=== PATIENT | male | born 1965 | race Caucasian/White ===

== ENCOUNTER → 2018-04-24 16:56 | Outpatient (CLI) | payer MEDICARE, MEDICAID, SELFPAY ==
[2018-04-24 16:59] LABS: Microscopic, Urine URINE MICROSCOPIC (MICROSCOPIC)
[2018-04-24 17:10] LABS: Appearance,Urine CLEAR (Clear); Bilirubin,Urine Negative (Negative); Blood, Urine Negative (Negative); Color,Urine YELLOW (Yellow); Glucose,Urine (UA) Negative (Negative); Ketones,Urine Negative (Negative); Leukocyte Esterase,Urine Negative (Negative); Nitrate,Urine Negative (Negative); PH,Urine 5.5 (5.0-8.5); Protein,Urine Negative (Negative); Urobilinogen,Urine 0.2 EU/dl (0.2)
[2018-04-24 17:18] LABS: Squamous Epithelial Cell,Urine Occasional #/hpf (0-5); WBC,Urine Occasional #/hpf (0-3)
== END ==
PROVIDERS: PCP Internal Medicine; Visit Provider Internal Medicine
DX: C34.90 Malignant neoplasm of unspecified part of unspecified bronchus or lung (principal)
CPT/HCPCS: 81001

== ENCOUNTER 2018-05-09 13:04 | Outpatient (CLI) | payer MEDICARE, MEDICAID, SELFPAY ==
[2018-05-09 15:41] VITALS: BP 129/78; PULSE 86; RESP 16; TEMP 36.6; O2SAT 96
== END 2018-05-09 15:15 | disposition home or self-care (01) ==
LOC: INF 13:06
PROVIDERS: Family Provider Internal Medicine; PCP Internal Medicine; Visit Provider Internal Medicine Infectious Disease
DX: L03.313 Cellulitis of chest wall (principal); B95.62 Methicillin resistant Staphylococcus aureus infection as the cause of diseases classified elsewhere; J96.11 Chronic respiratory failure with hypoxia; I87.2 Venous insufficiency (chronic) (peripheral); E11.9 Type 2 diabetes mellitus without complications; E66.01 Morbid (severe) obesity due to excess calories; C34.90 Malignant neoplasm of unspecified part of unspecified bronchus or lung; C79.51 Secondary malignant neoplasm of bone; F17.210 Nicotine dependence, cigarettes, uncomplicated
CPT/HCPCS: 96365; J0878

== ENCOUNTER 2018-05-10 13:06 | Outpatient (CLI) | payer MEDICARE, MEDICAID, SELFPAY ==
[2018-05-10 13:32] VITALS: BP 129/76; PULSE 90; RESP 16; TEMP 36.9; O2SAT 99
== END 2018-05-10 14:10 | disposition home or self-care (01) ==
LOC: INF 13:07
PROVIDERS: Family Provider Internal Medicine; PCP Internal Medicine; Visit Provider Internal Medicine Infectious Disease
DX: L03.313 Cellulitis of chest wall (principal); B95.62 Methicillin resistant Staphylococcus aureus infection as the cause of diseases classified elsewhere; J96.11 Chronic respiratory failure with hypoxia; I87.2 Venous insufficiency (chronic) (peripheral); E11.9 Type 2 diabetes mellitus without complications; E66.01 Morbid (severe) obesity due to excess calories; C34.90 Malignant neoplasm of unspecified part of unspecified bronchus or lung; C79.51 Secondary malignant neoplasm of bone; F17.210 Nicotine dependence, cigarettes, uncomplicated
CPT/HCPCS: 96365; J0878

== ENCOUNTER 2018-05-11 13:10 | Outpatient (CLI) | payer MEDICARE, MEDICAID, SELFPAY ==
[2018-05-11 13:20] VITALS: BMI 39.2
[2018-05-11 14:00] VITALS: BP 129/75; PULSE 84; RESP 18; TEMP 36.6; O2SAT 95
[2018-05-11 14:30] VITALS: BP 118/72; PULSE 88; RESP 18; O2SAT 96
[2018-05-11 14:32] LABS: Basophils % 0.4 % (0.1-2.0); Eosinophils % 0.6 % (0.1-12.0); Hematocrit 36.1 % (42.0-52.0); Hemoglobin 10.8 g/dL (14.1-18.0); Lymphocytes # 0.4 K/mm3 (0.7-4.5); Lymphocytes % 6.7 K/mm3 (10-50); Mean Corpuscular HGB Conc 29.9 g/dL (31.8-35.4); Mean Corpuscular Hemoglobin 28.7 pg (27.0-31.2); Mean Platelet Volume 9.2 fl (7.4-10.4); Monocytes # 0.3 K/mm3 (0.1-1.0); Monocytes % 4.7 % (1.7-9.3); Neutrophils # 5.8 K/mm3 (1.8-7.8); Neutrophils % 87.6 % (37.0-80.0); Platelet Count 260 K/mm3 (142-424); Red Blood Count 3.76 M/mm3 (4.60-6.20); Red Cell Distribution Width 16.4 % (11.5-17.5); White Blood Count 6.6 K/mm3 (4.8-10.8)
[2018-05-11 14:36] LABS: MANUAL DIFFERENTIAL MANUAL DIFFERENTIAL (MANUAL DIFF)
[2018-05-11 14:40] VITALS: BP 124/78; PULSE 82; RESP 18; O2SAT 95
[2018-05-11 14:42] LABS: Alanine Aminotransferase 22 U/L (12-78); Albumin Level 3.1 gm/dL (3.4-5.0); Albumin/Globulin Ratio 0.8 (1.1-1.8); Alkaline Phosphatase 128 U/L (46-116); Anion Gap 7.9 mEq/L (5-15); Aspartate Amino Transferase 8 U/L (15-37); Bilirubin,Total 0.4 mg/dL (0.2-1.0); Blood Urea Nitrogen 14 mg/dL (7-18); Calcium 8.2 mg/dL (8.5-10.1); Carbon Dioxide 30 mmol/L (21.0-32.0); Chloride 105 mmol/L (98-107); Creatine Kinase 25 U/L (39-308); Creatinine Clearance Estimated 215 mL/min (0-300); Creatinine,Serum 0.68 mg/dL (0.70-1.30); Estimated Glomerular Filt Rate 123 ml/min (>60); GFR (African American) 149 ML/MIN (>60); Globulin 3.8 gm/dl (1.3-3.2); Glucose 169 mg/dL (74-106); Potassium 3.9 mmoL/L (3.5-5.1); Sodium 139 mmol/L (136-145); Total Protein,Serum 6.9 gm/dL (6.4-8.2)
[2018-05-11 15:00] LABS: Eosinophils % 1 % (0-3); Lymphocytes % 4 % (10-50); Monocytes % 9 % (2-9); Neutrophils % 86 % (42-76); Total Cells Counted 100
[2018-05-11 15:01] LABS: Platelet Estimate Normal; RBC Morphology Normal
[2018-05-11 15:18] LABS: Erythrocyte Sedimentation Rate 70 mm/hr (0-15)
== END 2018-05-11 14:45 | disposition home or self-care (01) ==
LOC: INF 13:17
PROVIDERS: Family Provider Internal Medicine; PCP Internal Medicine; Visit Provider Internal Medicine Infectious Disease
DX: L02.213 Cutaneous abscess of chest wall (principal); L03.313 Cellulitis of chest wall; B95.62 Methicillin resistant Staphylococcus aureus infection as the cause of diseases classified elsewhere
CPT/HCPCS: 36415; 80053; 82550; 85007; 85025; 85651; 86140; 96365; J0878

== ENCOUNTER 2018-05-12 13:00 | Outpatient (CLI) | payer MEDICARE, MEDICAID, SELFPAY ==
[2018-05-12 13:45] VITALS: BP 151/86; PULSE 98; RESP 18; TEMP 36.7; O2SAT 95
[2018-05-12 14:20] VITALS: BP 132/70; PULSE 93; RESP 18
== END 2018-05-12 14:20 | disposition home or self-care (01) ==
LOC: INF 13:14
PROVIDERS: PCP Internal Medicine; Visit Provider Internal Medicine Infectious Disease
DX: L02.213 Cutaneous abscess of chest wall (principal); L03.313 Cellulitis of chest wall; B95.62 Methicillin resistant Staphylococcus aureus infection as the cause of diseases classified elsewhere; I87.2 Venous insufficiency (chronic) (peripheral); J96.11 Chronic respiratory failure with hypoxia; E11.9 Type 2 diabetes mellitus without complications; E66.01 Morbid (severe) obesity due to excess calories; J44.9 Chronic obstructive pulmonary disease, unspecified; C34.90 Malignant neoplasm of unspecified part of unspecified bronchus or lung; C79.51 Secondary malignant neoplasm of bone; F17.210 Nicotine dependence, cigarettes, uncomplicated
CPT/HCPCS: 96365; J0878

== ENCOUNTER 2018-05-13 13:07 | Outpatient (CLI) | payer MEDICARE, MEDICAID, SELFPAY ==
[2018-05-13 13:40] VITALS: BP 136/81; PULSE 93; RESP 18; O2SAT 93
[2018-05-13 14:10] VITALS: BP 125/56; PULSE 88; RESP 18
== END 2018-05-13 14:35 | disposition home or self-care (01) ==
LOC: INF 13:08
PROVIDERS: PCP Internal Medicine; Visit Provider Internal Medicine Infectious Disease
DX: L02.231 Carbuncle of abdominal wall (principal); L03.313 Cellulitis of chest wall; B95.62 Methicillin resistant Staphylococcus aureus infection as the cause of diseases classified elsewhere; I87.2 Venous insufficiency (chronic) (peripheral); J96.11 Chronic respiratory failure with hypoxia; F17.210 Nicotine dependence, cigarettes, uncomplicated
CPT/HCPCS: 96365; J0878

== ENCOUNTER 2018-05-14 13:15 | Outpatient (CLI) | payer MEDICARE, MEDICAID, SELFPAY ==
[2018-05-14 13:40] VITALS: BP 121/70; PULSE 71; RESP 18; TEMP 36.6; O2SAT 95
[2018-05-14 14:10] VITALS: BP 119/69; PULSE 76; RESP 18; O2SAT 96
[2018-05-14 14:35] VITALS: BP 122/64; PULSE 74; RESP 18; O2SAT 95
== END 2018-05-14 14:40 | disposition home or self-care (01) ==
LOC: INF 13:15
PROVIDERS: Family Provider Internal Medicine; PCP Internal Medicine; Visit Provider Internal Medicine Infectious Disease
DX: L02.213 Cutaneous abscess of chest wall (principal); L03.313 Cellulitis of chest wall; B95.62 Methicillin resistant Staphylococcus aureus infection as the cause of diseases classified elsewhere; J96.11 Chronic respiratory failure with hypoxia; I87.2 Venous insufficiency (chronic) (peripheral); E11.9 Type 2 diabetes mellitus without complications; E66.01 Morbid (severe) obesity due to excess calories; C34.90 Malignant neoplasm of unspecified part of unspecified bronchus or lung; C79.51 Secondary malignant neoplasm of bone; F17.210 Nicotine dependence, cigarettes, uncomplicated
CPT/HCPCS: 96365; J0878

== ENCOUNTER 2018-06-17 16:08 | Outpatient (RCR) | payer MEDICARE, MEDICAID, SELFPAY | END 2018-06-17 16:09 | disposition home or self-care (01) | LOC: PT 16:08 | PROVIDERS: Referring Provider Internal Medicine | DX: M54.6 Pain in thoracic spine (principal); G89.29 Other chronic pain; C34.90 Malignant neoplasm of unspecified part of unspecified bronchus or lung; C79.51 Secondary malignant neoplasm of bone | CPT/HCPCS: 97163 ==